=== PATIENT | female | born 1950 | race Two or more races ===

== ENCOUNTER 2024-01-13 14:09 | Emergency (ER) | payer OTHER ==
[~2024-01-13] VITALS: Ht 154.9 cm; Wt 74.8 kg
[2024-01-13] MEDS ORDERED: EZALLOR SPRINKL40 MG (14:28)
[2024-01-13] MEDS ORDERED: CHILDREN'S ASPI81 MG (14:29)
[2024-01-13] MEDS ORDERED: AVAPRO300 MG PO (14:29)
[2024-01-13] MEDS ORDERED: CHLORTHALIDONE25 MG PO (14:29)
[2024-01-13] MEDS ORDERED: NASAL MIST126 ML (14:29)
[2024-01-13] MEDS ORDERED: BETHANECHOL CHL50 MG (14:30)
[2024-01-13] MEDS ORDERED: TOPROL XL100 M1 (14:30)
[2024-01-13] MEDS ORDERED: FAMOTIDINE/PF 20 MG/2 ML VIAL IV ONE (15:45)
[2024-01-13] MEDS ORDERED: METHYLPREDNISOLONE SOD SUCC 125 MG VIAL IV ONE (15:45)
[2024-01-13 16:24] LABS: HEMATOCRIT 44.2 % (36.0-45.00); HEMOGLOBIN 15.1 g/dL (12.0-15.00); MEAN CELL VOLUME 87.8 fL (80.00-100.00); MEAN CORPUSCULAR HEMOGLOBIN 29.9 pg (27.00-32.0); MEAN CORPUSCULAR HGB CONC 34.1 g/dl (32.0-36.0); PLATELET COUNT 219 K/uL (150-450); RED BLOOD COUNT 5.04 M/uL (4.00-6.00); RED CELL DISTRIBUTION WIDTH 13.5 % (11.5-14.5)
[2024-01-13] MEDS ORDERED: ALLERGY RELIEF25 MG PO (17:08)
[2024-01-13] MEDS ORDERED: PEPCID AC20 MG PO (17:08)
[2024-01-13] MEDS ORDERED: MEDROLPACK PO (17:08)
[2024-01-13] MEDS ORDERED: DIPHENHYDRAMINE HCL 50 MG/ML VIAL 1ML IM ONE (17:30)
== END 2024-01-13 17:56 ==
LOC: ER 14:09
PROVIDERS: Nurse Practitioner Family
DX: L50.9 Urticaria, unspecified (principal); E03.9 Hypothyroidism, unspecified; I10 Essential (primary) hypertension
CPT/HCPCS: 36415; 96365; 96372; 99283; J1200; J2930; J3490

== ENCOUNTER 2024-10-15 12:34 | Emergency (ER) | payer OTHER ==
[~2024-10-15] VITALS: Ht 154.9 cm; Wt 73.5 kg
[~2024-10-15 12:34] MED LIST: ALLERGY RELIEF25 MG PO; AVAPRO300 MG PO; BETHANECHOL CHL50 MG; CHILDREN'S ASPI81 MG; CHLORTHALIDONE25 MG PO; EZALLOR SPRINKL40 MG; MEDROLPACK PO; NASAL MIST126 ML; PEPCID AC20 MG PO; SYNTHROID125 MCG; TOPROL XL100 M1
[2024-10-15] MEDS ORDERED: AMLODIPINE-OLM1 EAC2 (13:00)
[2024-10-15] MEDS ORDERED: ZETIA10 MG (13:01)
[2024-10-15 14:41] LABS: HEMATOCRIT 42.3 % (36.0-45.00); HEMOGLOBIN 14.6 g/dL (12.0-15.00); MEAN CELL VOLUME 86.5 fL (80.00-100.00); MEAN CORPUSCULAR HEMOGLOBIN 29.8 pg (27.00-32.0); MEAN CORPUSCULAR HGB CONC 34.4 g/dl (32.0-36.0); PLATELET COUNT 247 K/uL (150-450); RED BLOOD COUNT 4.88 M/uL (4.00-6.00); RED CELL DISTRIBUTION WIDTH 14.4 % (11.5-14.5)
[2024-10-15 15:03] LABS: CALCIUM 9.4 mg/dL (8.5-10.1); CREATININE SERUM 0.97 mg/dL (0.55-1.02); GFR 56.45; POTASSIUM 3.97 mEq/L (3.5-5.1)
[2024-10-15 15:45] LABS: PH,URINE 7.5 (5.0-8.0); URINE APPEARANCE Clear; URINE BILIRRUBIN Negative (NEGATIVE); URINE BLOOD Trace; URINE COLOR Yellow; URINE GLUCOSE Negative (NEGATIVE); URINE KETONE Negative (NEGATIVE); URINE LEUKOCYTE Trace; URINE NITRATE Negative; URINE PROTEIN Negative (NEGATIVE); URINE UROBILINOGEN 0.2 E.U./dl
[2024-10-15 15:52] LABS: URINE BACTERIA 14.6 uL (0.0-1933)
[2024-10-15 16:07] LABS: URINE CAST 0.29 uL (0.0-1.40)
== END 2024-10-15 19:09 | disposition home or self-care (01) ==
LOC: ER 12:36
PROVIDERS: Emergency Medicine
DX: R10.9 Unspecified abdominal pain (principal); I10 Essential (primary) hypertension; E03.8 Other specified hypothyroidism
CPT/HCPCS: 36415; 74177; 99284; Q9965